=== PATIENT | female | born 1985 | race African-American/Black ===

== ENCOUNTER 2016-10-01 05:00 | Inpatient (IN) | payer BC, MEDICAID ==
[2016-09-30 12:14] LABS: ABSOLUTE EOSINOPHILS # (AUTO) 0.1 10^3/uL (0.0-0.6); ABSOLUTE MONOCYTES (AUTO) 0.4 10^3/uL (0.1-1.4); ABSOLUTE NEUT (AUTO) 5.1 10^3/uL (1.7-8.2); BASOPHILS % (AUTO) 0.5 % (0-2); EOSINOPHILS % (AUTO) 1.1 % (0-6); HEMATOCRIT 34.1 % (36.0-47.0); HEMOGLOBIN 11.3 g/dL (12.0-15.5); HGB HCT DIFFERENCE -0.2; MEAN CORPUSCULAR HEMOGLOBIN 28.1 pg (27.0-33.4); MEAN CORPUSCULAR HGB CONC 33.2 g/dL (32.0-36.0); MEAN CORPUSCULAR VOLUME 85 fl (80-97); MONOCYTES % (AUTO) 5.9 % (3-13); RED BLOOD COUNT 4.02 10^6/uL (3.72-5.28); RED CELL DISTRIBUTION WIDTH 13.5 % (11.5-14.0); SEGMENTED NEUTROPHILS % (AUTO) 66.5 % (42-78); WHITE BLOOD COUNT 7.6 10^3/uL (4.0-10.5)
[2016-09-30 12:24] LABS: APPEARANCE,URINE SLIGHTLY-CLOUDY; BILIRUBIN,URINE NEGATIVE (NEGATIVE); GLUCOSE, URINE NEGATIVE (NEGATIVE); KETONES,URINE NEGATIVE (NEGATIVE); LEUKOCYTE ESTERASE,URINE TRACE (NEGATIVE); NITRITE,URINE NEGATIVE (NEGATIVE); PROTEIN,URINE NEGATIVE (NEGATIVE); URINE SPECIFIC GRAVITY 1.023; UROBILINOGEN,URINE NEGATIVE mg/dL (<2.0)
[2016-09-30 12:40] LABS: URINE BARBITURATES SCREEN NEGATIVE; URINE METHADONE SCREEN NEGATIVE; URINE OPIATES LOW NEGATIVE; URINE PHENCYCLIDINE SCREEN NEGATIVE
[~2016-10-01 05:00] MED LIST: CEFAZOLIN 1 GM/D5W RTU 1 GM/50 ML RTUPB IV PRN; LACTATED RINGERS 1000 ML IV PRN; LIDOCAINE 0.5% INJ-PF (5 MG/ML) 50 ML SDV SUBCUT PRN; RINGERS SOLUTION,LACTATED 1,500 ML IV PRN
[2016-10-01] MEDS ORDERED: OXYTOCIN 10 UNIT/ML VIAL ONE (07:39)
[2016-10-01] MEDS ORDERED: FENTANYL CITRATE INJ/PF 100 MCG/2 ML AMPUL ONE (07:39)
[2016-10-01] MEDS ORDERED: EPHEDRINE SULFATE INJ 50 MG/1 ML AMPULE ONE (07:40)
[2016-10-01] MEDS ORDERED: MORPHINE SULFATE 10 MG/ML INJ ONE (07:40)
[2016-10-01] MEDS ORDERED: ONDANSETRON HCL INJ/PF 4 MG/2 ML SDV ONE (07:40)
[2016-10-01] MEDS ORDERED: MIDAZOLAM 2 MG/2 ML INJ ONE (07:40)
[2016-10-01] MEDS ORDERED: KETOROLAC TROMETHAMINE INJ/PF 30 MG/1 ML SDV ONE (07:41)
[2016-10-01] MEDS ORDERED: ACETAMINOPHEN 100 ML IV ONE ×2 (07:41→15:00)
[2016-10-01] MEDS ORDERED: PROMETHAZINE HCL INJ 25 MG/1 ML VIAL IV PRN ×2 (08:19)
[2016-10-01] MEDS ORDERED: DIPHENHYDRAMINE HCL 50 MG/ML VIAL IV PRN (08:19)
[2016-10-01] MEDS ORDERED: MORPHINE SULFATE 10 MG/ML INJ IV PRN ×2 (08:19→12:00)
[2016-10-01] MEDS ORDERED: FENTANYL CITRATE INJ/PF 100 MCG/2 ML AMPUL IV PRN ×3 (08:19)
[2016-10-01] MEDS ORDERED: MEPERIDINE HCL/PF INJ 25 MG/1 ML DISP.SYRIN IV PRN (08:19)
[2016-10-01] MEDS ORDERED: OXYCODONE-ACETAMINOPHEN 5-325 MG TABLET PO PRN ×3 (08:19→12:00)
[2016-10-01] MEDS: FENTANYL CITRATE INJ/PF 100 MCG/2 ML AMPUL ONE ×3 (09:49→10:35)
[2016-10-01] MEDS ORDERED: OXYTOCIN/NORMAL SALINE 20 UNIT/1,000 ML RTUINJ ONE (09:50)
--- NOTE | 2016-10-01 09:57 | OPERATIVE REPORT E ---
Operative Report NAME: RACHNA KUMARI : 1985 AGE: 31Y DATE OF SURGERY: 10/01/2016 ROOM: 228 PREOPERATIVE DIAGNOSES: 1. IUP at 39+ weeks. 2. Previous x2. 3. Undesired fertility. 4. Keloid scar. POSTOPERATIVE DIAGNOSES: 1. IUP at 39+ weeks. 2. Previous x2. 3. Undesired fertility. 4. Keloid scar. SURGEON: OLGA MARVIN M.D. ANESTHESIA: Dr. Johnson with a spinal. FINDINGS: Male infant in cephalic presentation with Apgars of 9 and 9. Dense rectus muscle adhesions. COMPLICATIONS: None. ESTIMATED BLOOD LOSS: 600 mL. SPECIMENS REMOVED: Bilateral fallopian tubes. PROCEDURE: Low-transverse hysterotomy section with [place] tubal ligation. PROCEDURE IN DETAIL: Patient was taken to the operating room, prepared and draped in a normal sterile fashion in a supine position with a leftward tilt. A transverse skin incision was made with a scalpel outlying the patient's previous keloid scar. This keloid scar was removed with a #10 blade scalpel and the underlying layer of tissue was transected with a scalpel down to the fascial layer. The fascia was then with the Messer scissors. The fascia was tented up with Kochers and the Messer scissors were used to dissect the rectus muscle from the fascia both superiorly and inferiorly. The rectus muscle was found to be very densely adhesed and this was divided sharply and carefully with Bovie. Peritoneal cavity entry was performed sharply with Bovie as well and the rectus muscle was further divided with dissection and Bovie. The bladder blade was inserted. The adhesion of the bladder to the uterus was taken down with Metzenbaums and the bladder blade was reinserted. The hysterotomy was nicked in the center with a scalpel and extended laterally with the surgeon's finger fracture. The amniotomy was performed with a hemostat and the was then delivered atraumatically. Nose and mouth were suctioned with a suction bulb, cord was clamped and cut, and the was handed off to awaiting pediatricians. Cord blood was collected. Placenta was removed manually. The uterus was exteriorized of clots and debris. The hysterotomy was closed with 0 Monocryl in a running, locked fashion. A second layer of the same suture was used to imbricate to ensure hemostasis, and Bovie cautery was used on the capillary bleeders at the serosal surface. Attention was then turned to the tubal ligation where the left fallopian tube was grasped with a Mcarthur and the mesosalpinx was divided with the Bovie. The intermediate section of the fallopian tube was then tied off with 2 pieces of 2-0 chromic and the intermediate section was then removed with Metzenbaums and the pedicles were bovied. This was repeated on the right fallopian tube without difficulty. The uterus was then returned to the abdomen and the pedicles were reinspected and found to be hemostatic and intact. The peritoneal cavity was cleared of clots and debris. The rectus muscle and peritoneum were reapproximated with a mattress stitch of 2-0 chromic. The fascia was closed with 0 Vicryl. Subcutaneous layer was closed with plain catgut and the skin was closed with 4-0 Vicryl. The patient tolerated the procedure well. Sponge, lap, and needle counts were correct x2. The patient was taken to recovery in stable condition. DICTATING PHYSICIAN: OLGA MARVIN M.D. [id number] PHY#: [id number] ID: [id number] JOB#: [id number] ACCT: [id number] cc:OLGA MARVIN M.D. > MTDD
[2016-10-01] MEDS ORDERED: OXYTOCIN/NORMAL SALINE 20 UNIT/1,000 ML RTUINJ INJ PRN (11:48)
[2016-10-01] MEDS ORDERED: RINGERS SOLUTION,LACTATED 1,000 ML IV PRN (11:52)
[2016-10-01] MEDS ORDERED: MEASLES,MUMPS&RUBELLA VACC/PF 0.5 ML VIAL SUBCUT PRN (12:00)
[2016-10-01] MEDS ORDERED: RINGERS SOLUTION,LACTATED 1,000 ML IV SCH (12:00)
[2016-10-01] MEDS ORDERED: SIMETHICONE 80 MG TAB.CHEW PO PRN (12:00)
[2016-10-01] MEDS ORDERED: PROMETHAZINE HCL INJ 25 MG/1 ML VIAL IM PRN (12:00)
[2016-10-01] MEDS ORDERED: ACETAMINOPHEN 325 MG TABLET PO PRN (12:00)
[2016-10-01] MEDS ORDERED: DIPH/PERTUSS(ACELL)/TETANUS VAC/PF 0.5 ML SYR (>=10YO) IM PRN (12:00)
[2016-10-01] MEDS: OXYCODONE-ACETAMINOPHEN 5-325 MG TABLET PO PRN ×2 (12:33→19:37)
[2016-10-01] MEDS ORDERED: LEVOTHYROXINE SODIUM 0.088 MG TABLET PO ONE (14:00)
[2016-10-01] MEDS: KETOROLAC TROMETHAMINE INJ/PF 30 MG/1 ML SDV IV SCH ×2 (14:01→21:04)
[2016-10-01] MEDS: DOCUSATE SODIUM 100 MG CAPSULE PO SCH (17:53)
[2016-10-02] MEDS: OXYCODONE-ACETAMINOPHEN 5-325 MG TABLET PO PRN ×4 (03:11→20:39)
[2016-10-02 05:48] LABS: HEMATOCRIT 28.4 % (36.0-47.0); HEMOGLOBIN 9.3 g/dL (12.0-15.5); HGB HCT DIFFERENCE -0.5; MEAN CORPUSCULAR HEMOGLOBIN 28.1 pg (27.0-33.4); MEAN CORPUSCULAR HGB CONC 32.6 g/dL (32.0-36.0); MEAN CORPUSCULAR VOLUME 86 fl (80-97); RED CELL DISTRIBUTION WIDTH 13.4 % (11.5-14.0); WHITE BLOOD COUNT 8.9 10^3/uL (4.0-10.5)
[2016-10-02] MEDS: KETOROLAC TROMETHAMINE INJ/PF 30 MG/1 ML SDV IV SCH (06:19)
[2016-10-02] MEDS: LEVOTHYROXINE SODIUM 0.088 MG TABLET PO SCH (07:35)
[2016-10-02] MEDS ORDERED: PRENATAL VITAMIN W-O CA NO5/FE FUMARATE/FA CAPSULE PO SCH (10:00)
[2016-10-02] MEDS ORDERED: LEVOTHYROXINE SODIUM 0.088 MG TABLET PO SCH (10:00)
--- NOTE | 2016-10-02 10:19 | PDOC PROGRESS REPORT ---
Subjective-OB Subjective: Post Delivery Day: 1 31 year old. Denies any needs at this time, pain well controlled, lochia stable , voiding without difficulty. Physical Exam (OB) Vital Signs: Temp Pulse Resp BP Pulse Ox 98.0 F 83 18 116/68 98 10/02/16 08:14 10/02/16 08:14 10/02/16 08:14 10/02/16 08:14 10/02/16 08:14 Intake & Output 10/01/16 10/02/16 10/03/16 06:59 06:59 06:59 Intake Total 2320 Output Total 3520 Balance -1200 Weight 87.09 kg - Dressing Removed: No - opsite Incision: Well Approximated - Lochia Lochia Amount: Scant < 10 ml Lochia Color: Rubra/Red - Abdomen Description: Soft Hernia Present: No Fundal Description: Firm, Midline Fundal Height: u/u - u/2 Objective-Diagnostic Laboratory: 10/02/16 05:14 10/02/16 05:14 WBC 8.9 RBC 3.30 L Hgb 9.3 L Hct 28.4 L MCV 86 MCH 28.1 MCHC 32.6 RDW 13.4 Plt Count 186 Assessment and Plan(PN) - Assessment and Plan (1) Anemia Qualifiers: Anemia type: unspecified type Qualified Code(s): D64.9 - Anemia, unspecified Is this a current diagnosis for this admission?: Yes Plan: routine postop care (2) Delivery by section of full-term Is this a current diagnosis for this admission?: Yes Plan: post op care - Time Spent with Patient Time with patient: Less than 15 minutes Critical Time spent with patient: Less than 15 minutes Medications reviewed and adjusted accordingly: Yes - Disposition Anticipated Discharge: Home Within: within 24 hours
[2016-10-02] MEDS: IBUPROFEN 800 MG TABLET PO SCH ×2 (10:43→17:20)
[2016-10-02] MEDS: MULTIVITAMIN TABLET PO SCH (10:43)
[2016-10-02] MEDS: DOCUSATE SODIUM 100 MG CAPSULE PO SCH ×2 (10:45→17:20)
[2016-10-02] MEDS: PRENATAL VITAMIN W-O CA NO5/FE FUMARATE/FA CAPSULE PO SCH (10:45)
[2016-10-03] MEDS: IBUPROFEN 800 MG TABLET PO SCH ×3 (01:23→10:56)
[2016-10-03] MEDS: OXYCODONE-ACETAMINOPHEN 5-325 MG TABLET PO PRN (01:24)
[2016-10-03] MEDS: LEVOTHYROXINE SODIUM 0.088 MG TABLET PO SCH (08:40)
[2016-10-03] MEDS: PRENATAL VITAMIN W-O CA NO5/FE FUMARATE/FA CAPSULE PO SCH (10:56)
[2016-10-03] MEDS: MULTIVITAMIN TABLET PO SCH (10:56)
[2016-10-03] MEDS: DOCUSATE SODIUM 100 MG CAPSULE PO SCH (10:56)
--- NOTE | 2016-10-03 12:28 | PDOC DISCHARGE SUMMARY ---
Final Diagnosis Discharge Date: 10/03/16 - Final Diagnosis (1) Delivery by section of full-term infant Is this a current diagnosis for this admission?: Yes Discharge Data - Discharge Medication Home Medications: Levothyroxine Sodium 88 mcg PO DAILY 10/04/14 Multivitamin [Tab-A-Charles] 1 each PO DAILY 09/30/16 Ldf989/FA/Omega3/Dha/Fish Oil [ Gummies] 2 each PO DAILY 09/30/16 Reason(s) for Admission: Ceasarean Section-Repeat Procedures: None Intrapartum Procedure(s): : Low Cervical, Transverse - Diagnosis Test Laboratory: Temp Pulse Resp BP Pulse Ox 97.7 F 105 H 16 115/71 95 10/03/16 11:37 10/03/16 11:37 10/03/16 11:37 10/03/16 11:37 10/03/16 11:37 09/30/16 09/30/16 10/02/16 10:57 11:09 05:14 RBC 4.02 3.30 L Hgb 11.3 L 9.3 L Hct 34.1 L 28.4 L Urine Opiates Screen NEGATIVE - Discharge information/Instructions Discharge Activity: Activity As Tolerated, No Lifting Over 10 Pounds, No Lifting /Push/Pulling, Pelvic Rest, No tub bath Discharge Diet: Regular Disposition: HOME, SELF-CARE Follow up with: [facility] in: 5, Days
[2016-10-03 12:57] VITALS: BP 127/81
== END 2016-10-03 14:18 | disposition home or self-care (01) | DRG 766 ==
LOC: 2S 05:00
PROVIDERS: ADMIT Obstetrics & Gynecology; ATTEND Obstetrics & Gynecology
PROC: 0UB70ZZ Excision of Bilateral Fallopian Tubes, Open Approach (ICD-10-PCS; 2016-10-01)
PROC: 4A1HXCZ Monitoring of Products of Conception, Cardiac Rate, External Approach (ICD-10-PCS; 2016-10-01)
PROC: 10D00Z1 Extraction of Products of Conception, Low, Open Approach (ICD-10-PCS; principal; 2016-10-01 07:45)
DX: O34.211 Maternal care for low transverse scar from previous cesarean delivery (principal); O99.334 Smoking (tobacco) complicating childbirth; N85.8 Other specified noninflammatory disorders of uterus; L91.0 Hypertrophic scar; L90.5 Scar conditions and fibrosis of skin; O99.02 Anemia complicating childbirth; Z30.2 Encounter for sterilization; Z37.0 Single live birth; F17.201 Nicotine dependence, unspecified, in remission; D64.9 Anemia, unspecified; Z3A.39 39 weeks gestation of pregnancy; Z82.49 Family history of ischemic heart disease and other diseases of the circulatory system
CPT/HCPCS: 1961; 36415; 59025; 80307; 81001; 85025; 85027; 86850; 86900; 86901; 88302; 94799; J0131; J1885; J2250; J2270; J2405; J2590; J3010; J3490; J7120